=== PATIENT | female | born 1965 | race Caucasian/White ===

== ENCOUNTER 2019-08-18 08:38 | Outpatient (CLI) | payer OTHER, SELFPAY ==
[2019-08-18 09:05] LABS: Basophils Absolute Auto 0.04 K/mm3 (0.00-0.10); Basophils Percent Auto 0.8 % (0.0-1.0); Eosinophils Absolute Auto 0.12 K/mm3 (0.02-0.50); Eosinophils Percent Auto 2.3 % (1.0-6.0); Hematocrit 36.3 % (35.0-49.0); Hemoglobin 11.9 g/dL (12.0-15.0); Immature Granulocyte Absolute 0.02 K/mm3 (0.00-0.00); Immature Granulocyte Percent A 0.4 % (0.0-0.0); Lymphocytes Absolute Auto 2.21 K/mm3 (1.10-4.50); Lymphocytes Percent Auto 42.3 % (18.0-42.0); Mean Corpuscular HGB Conc 32.8 g/dL (32.0-36.0); Mean Corpuscular Hemoglobin 29.1 pg (27.0-31.0); Mean Corpuscular Volume 88.8 fL (78.0-102.0); Mean Platelet Volume 11.6 fl (9.2-11.8); Monocytes Absolute Auto 0.43 K/mm3 (0.10-0.90); Monocytes Percent Auto 8.2 % (2.0-11.0); Neutrophils Absolute Auto 2.4 K/mm3 (1.7-7.2); Platelet Count Result 196 K/mm3 (150-420); Red Blood Count 4.09 M/mm3 (4.20-5.40); Red Cell Distribution Width 12.7 % (11.6-14.4); White Blood Count 5.2 K/mm3 (4.8-10.8)
[2019-08-18 09:14] LABS: Add Urine Microscopic? NO; Appearance Urine Clear (Clear); Bilirubin Urine Negative (Negative); Blood Urine Negative (Negative); Color Urine Yellow (Yellow); Glucose Urine UA Negative (Negative); Ketones Urine Negative (Negative); Leukocyte Esterase Ur Negative (Negative); Nitrate Urine Negative (Negative); Protein Urine Negative (Negative); Specific Grav Ur 1.015 (1.010-1.020); Urobilinogen Urine 0.2 mg/dL (0.2-1.0)
[2019-08-18 09:46] LABS: Alanine Aminotransferase 26 U/L (14-59); Albumin Level 3.8 g/dL (3.4-5.0); Alkaline Phosphatase 49 U/L (46-116); Anion Gap 8.9 mmol/L (7-16); Aspartate Amino Transferase 19 U/L (15-37); Bilirubin,Total 0.4 mg/dL (0.00-1.00); Blood Urea Nitrogen 10 mg/dL (7-18); Calcium 8.7 mg/dL (8.5-10.1); Carbon Dioxide 31 mmol/L (21-32); Chloride 102 mmol/L (98-108); Cholesterol 165 mg/dL (0-200); Estimated Glomerular Filt Rate > 60; Glucose 98 mg/dL (70-99); HDL Direct 38 mg/dL (40-60); LDL Cholesterol Calculated 93 mg/dL (<130); Osmolality Calculated 285 mOsm/kg (285-295); Potassium 3.9 mmol/L (3.5-5.1); Sodium 138 mmol/L (136-145); Thyroid Stimulating Hormone 1.82 uIU/mL (0.36-3.74); Total Protein 7.6 g/dL (6.4-8.2); Triglycerides 169 mg/dL (0-150)
[2019-08-22 20:14] LABS: Vitamin D 25 Hydroxy 37 ng/mL (30-100)
== END 2019-08-18 08:39 | disposition home or self-care (01) ==
LOC: CHSLAB 08:49
PROVIDERS: PCP Internal Medicine Geriatric Medicine; Visit Provider Internal Medicine Geriatric Medicine
DX: Z00.00 Encounter for general adult medical examination without abnormal findings (principal); E78.5 Hyperlipidemia, unspecified; E55.9 Vitamin D deficiency, unspecified
CPT/HCPCS: 36415; 80053; 80061; 81003; 82306; 84443; 85025

== ENCOUNTER 2020-11-15 08:07 | Outpatient (CLI) | payer OTHER, SELFPAY ==
[2020-11-15 08:24] LABS: Add Urine Microscopic? NO; Appearance Urine Clear (Clear); Basophils Absolute Auto 0.06 K/mm3 (0.00-0.10); Bilirubin Urine Negative (Negative); Blood Urine Negative (Negative); Color Urine Yellow (Yellow); Eosinophils Absolute Auto 0.18 K/mm3 (0.02-0.50); Eosinophils Percent Auto 3.1 % (1.0-6.0); Glucose Urine UA Negative (Negative); Hematocrit 35.5 % (35.0-49.0); Hemoglobin 11.6 g/dL (12.0-15.0); Immature Granulocyte Absolute 0.01 K/mm3 (0.00-0.00); Immature Granulocyte Percent A 0.2 % (0.0-0.0); Ketones Urine Negative (Negative); Leukocyte Esterase Ur Negative (Negative); Lymphocytes Percent Auto 39.7 % (18.0-42.0); Mean Corpuscular HGB Conc 32.7 g/dL (32.0-36.0); Mean Corpuscular Hemoglobin 27.8 pg (27.0-31.0); Mean Corpuscular Volume 84.9 fL (78.0-102.0); Mean Platelet Volume 11.6 fl (9.2-11.8); Monocytes Absolute Auto 0.44 K/mm3 (0.10-0.90); Monocytes Percent Auto 7.6 % (2.0-11.0); Neutrophils Absolute Auto 2.8 K/mm3 (1.7-7.2); Neutrophils Percent Auto 48.4 % (50.0-70.0); Nitrate Urine Negative (Negative); Platelet Count Result 218 K/mm3 (150-420); Protein Urine Negative (Negative); Red Blood Count 4.18 M/mm3 (4.20-5.40); Red Cell Distribution Width 13.6 % (11.6-14.4); Urobilinogen Urine 0.2 mg/dL (0.2-1.0); White Blood Count 5.8 K/mm3 (4.8-10.8)
[2020-11-15 08:37] LABS: Hemoglobin A1C 5.7 % (<5.7)
[2020-11-15 09:37] LABS: Anion Gap 10 mmol/L (8-16); Blood Urea Nitrogen 9 mg/dL (7-18); Calcium 8.7 mg/dL (8.5-10.1); Carbon Dioxide 29 mmol/L (21-32); Chloride 100 mmol/L (98-108); Cholesterol 127 mg/dL (0-200); Estimated Glomerular Filt Rate > 60; Glucose 103 mg/dL (70-99); HDL Direct 38 mg/dL (40-60); LDL Cholesterol Calculated 65 mg/dL (<130); Osmolality Calculated 286 mOsm/kg (285-295); Potassium 3.6 mmol/L (3.5-5.1); Sodium 139 mmol/L (136-145); Thyroid Stimulating Hormone 2.38 uIU/mL (0.36-3.74); Triglycerides 120 mg/dL (0-150)
[2020-11-19 18:45] LABS: Vitamin D 25 Hydroxy 56 ng/mL (30-100)
== END 2020-11-15 08:08 | disposition home or self-care (01) ==
LOC: CHSLAB 08:10
PROVIDERS: PCP Internal Medicine Geriatric Medicine; Visit Provider Internal Medicine Geriatric Medicine
DX: Z00.00 Encounter for general adult medical examination without abnormal findings (principal); E78.5 Hyperlipidemia, unspecified; R73.09 Other abnormal glucose; E55.9 Vitamin D deficiency, unspecified
CPT/HCPCS: 36415; 80048; 80061; 81003; 82306; 83036; 84443; 85025

== ENCOUNTER 2021-12-01 08:18 | Outpatient (CLI) | payer OTHER, SELFPAY ==
--- NOTE | ~2021-12-01 | XR_ITS ---
EXAMINATION: XR knee LT min 4V DATE: 12/01/2021 08:38 INDICATION: Left knee pain TECHNIQUE: Four views of the left knee were obtained. COMPARISON: None. FINDINGS: Alignment is normal. No fracture or osteochondral lesion. There is mild tricompartmental os teoarthritis characterized by tiny marginal osteophytes and mild narrowing of the medial compartment. No joint effusion/synovitis. Soft tissues are unremarkable. IMPRESSION: 1. Mild osteoarthritis. Reviewed, dictated and finalized at location A. IMPRESSION: 1. Mild osteoarthritis.
== END 2021-12-01 08:19 | disposition home or self-care (01) ==
LOC: CHSIMG 08:18
PROVIDERS: PCP Internal Medicine Geriatric Medicine; Visit Provider Orthopaedic Surgery
DX: M25.562 Pain in left knee (principal)
CPT/HCPCS: 73564

== ENCOUNTER 2021-12-12 09:05 | Outpatient (CLI) | payer OTHER, SELFPAY ==
--- NOTE | ~2021-12-12 | MR_ITS ---
EXAMINATION: MR knee LT wo con DATE: 12/12/2021 09:56 INDICATION: Evaluate for left knee injury. TECHNIQUE: Magnetic resonance imaging (MRI) of the left knee was performed without intravenous contra st. Sequences included axial PD-weighted FS FSE, coronal PD-weighted FSE and PD-weighted FS FSE, sagi ttal PD-weighted FSE, and sagittal T2-weighted FS FSE. COMPARISON: X-ray left knee 12/01/2021 FINDINGS: Medial compartment: Small apical tear of the medial meniscal body. Mild medial extrusion of the meniscus. 4 mm area of fu ll-thickness cartilage loss on the medial condyle. Mild diffuse cartilage thinning. Mild osteophytosi s. Lateral compartment: No meniscal tear. Mild lateral extrusion of the meniscus. Mild osteophytosis. Patellofemoral compartment: Moderate diffuse thinning of cartilage on the lateral facet. Multifocal areas of partial-thickness ca rtilage signal abnormality. Mild osteophytosis. Retinacula are intact. Ligaments and tendons: Abnormal signal deep to the fibers of the ACL at the origin. The PCL is intact. Minimal abnormal sign al superficial to the fibers of the otherwise intact appearing MCL. The LCL is intact. Partial-thickn ess abnormal signal in the distal pes anserine tendons, with minimal adjacent fluid. Remaining flexor extensor tendons are intact. Fluid: Moderate volume joint fluid. Osseous/other: Marrow edema and subchondral cyst formation at the medial and lateral aspect of the medial femoral co ndyle. Bone marrow signal is otherwise unremarkable. IMPRESSION: 1. Small apical tear of the medial meniscal body. 2. Mild partial tear of the origin of the ACL. 3. Mild strain and bursitis of the pes anserine tendons. 4. 4 mm full-thickness cartilage defect on the medial femoral condyle. 5. Moderate left knee joint effusion. 6. Mild tricompartmental osteoarthritis. Reviewed, dictated and finalized at location K.
== END 2021-12-12 09:06 | disposition home or self-care (01) ==
LOC: CHSIMG 09:07
PROVIDERS: PCP Internal Medicine Geriatric Medicine; Visit Provider Orthopaedic Surgery
DX: S89.92XA Unspecified injury of left lower leg, initial encounter (principal)
CPT/HCPCS: 73721

== ENCOUNTER 2022-02-06 09:02 | Outpatient (CLI) | payer OTHER, SELFPAY ==
[2022-02-06 09:22] LABS: Basophils Absolute Auto 0.06 K/mm3 (0.00-0.10); Basophils Percent Auto 0.9 % (0.0-1.0); Eosinophils Absolute Auto 0.23 K/mm3 (0.02-0.50); Eosinophils Percent Auto 3.5 % (1.0-6.0); Hematocrit 39.4 % (35.0-49.0); Hemoglobin 12.8 g/dL (12.0-15.0); Immature Granulocyte Absolute 0.02 K/mm3 (0.00-0.00); Immature Granulocyte Percent A 0.3 % (0.0-0.0); Lymphocytes Absolute Auto 2.41 K/mm3 (1.10-4.50); Lymphocytes Percent Auto 36.3 % (18.0-42.0); Mean Corpuscular HGB Conc 32.5 g/dL (32.0-36.0); Mean Corpuscular Volume 89.3 fL (78.0-102.0); Mean Platelet Volume 11.4 fl (9.2-11.8); Monocytes Absolute Auto 0.48 K/mm3 (0.10-0.90); Monocytes Percent Auto 7.2 % (2.0-11.0); Neutrophils Absolute Auto 3.4 K/mm3 (1.7-7.2); Neutrophils Percent Auto 51.8 % (50.0-70.0); Platelet Count Result 225 K/mm3 (150-420); Red Blood Count 4.41 M/mm3 (4.20-5.40); Red Cell Distribution Width 13.4 % (11.6-14.4); White Blood Count 6.6 K/mm3 (4.8-10.8)
[2022-02-06 09:46] LABS: Alanine Aminotransferase 55 U/L (14-59); Albumin Level 3.7 g/dL (3.4-5.0); Alkaline Phosphatase 70 U/L (46-116); Anion Gap 5 mmol/L (8-16); Aspartate Amino Transferase 44 U/L (15-37); Bilirubin,Total 0.7 mg/dL (0.00-1.00); Blood Urea Nitrogen 12 mg/dL (7-18); Calcium 8.7 mg/dL (8.5-10.1); Carbon Dioxide 29 mmol/L (21-32); Chloride 100 mmol/L (98-108); Cholesterol 146 mg/dL (0-200); Estimated Glomerular Filt Rate > 60; Glucose 90 mg/dL (70-99); HDL Direct 48 mg/dL (40-60); LDL Cholesterol Calculated 71 mg/dL (<130); Osmolality Calculated 277 mOsm/kg (285-295); Potassium 3.4 mmol/L (3.5-5.1); Sodium 134 mmol/L (136-145); Thyroid Stimulating Hormone 1.47 uIU/mL (0.36-3.74); Total Protein 7.7 g/dL (6.4-8.2); Triglycerides 134 mg/dL (0-150)
[2022-02-10 12:08] LABS: Vitamin D 25 Hydroxy 43 ng/mL (30-100)
== END 2022-02-06 09:03 | disposition home or self-care (01) ==
LOC: CHSLAB 09:05
PROVIDERS: PCP Internal Medicine Geriatric Medicine; Visit Provider Internal Medicine Geriatric Medicine
DX: Z00.00 Encounter for general adult medical examination without abnormal findings (principal); E78.5 Hyperlipidemia, unspecified; E55.9 Vitamin D deficiency, unspecified; R73.09 Other abnormal glucose
CPT/HCPCS: 36415; 80053; 80061; 82306; 83036; 84443; 85025

== ENCOUNTER 2022-03-27 10:47 | Outpatient (CLI) | payer OTHER, SELFPAY ==
[2022-03-27 11:29] LABS: Alanine Aminotransferase 24 U/L (14-59); Albumin Level 3.9 g/dL (3.4-5.0); Alkaline Phosphatase 80 U/L (46-116); Aspartate Amino Transferase 30 U/L (15-37); Bilirubin Direct 0.1 mg/dL (0-0.2); Bilirubin,Total 0.5 mg/dL (0.00-1.00); Total Protein 7.7 g/dL (6.4-8.2)
== END 2022-03-27 10:48 | disposition home or self-care (01) ==
LOC: CHSLAB 10:49
PROVIDERS: PCP Internal Medicine Geriatric Medicine; Visit Provider Internal Medicine Geriatric Medicine
DX: Z51.81 Encounter for therapeutic drug level monitoring (principal)
CPT/HCPCS: 36415; 80076

== ENCOUNTER 2023-02-11 07:51 | Outpatient (CLI) | payer OTHER, SELFPAY ==
[2023-02-11 08:05] LABS: Hematocrit 40.1 % (35.0-49.0); Hemoglobin 13.3 g/dL (12.0-15.0); Mean Corpuscular HGB Conc 33.2 g/dL (32.0-36.0); Mean Corpuscular Hemoglobin 29.6 pg (27.0-31.0); Mean Corpuscular Volume 89.3 fL (78.0-102.0); Mean Platelet Volume 11.5 fl (9.2-11.8); Platelet Count Result 212 K/mm3 (150-420); Red Blood Count 4.49 M/mm3 (4.20-5.40); Red Cell Distribution Width 12.7 % (11.6-14.4); White Blood Count 5.4 K/mm3 (4.8-10.8)
[2023-02-11 08:06] LABS: Appearance Urine Clear (Clear); Bilirubin Urine Negative (Negative); Blood Urine Negative (Negative); Color Urine Light Yellow (Yellow); Glucose Urine UA Negative (Negative); Ketones Urine Negative (Negative); Leukocyte Esterase Ur Negative (Negative); Nitrate Urine Negative (Negative); Protein Urine Negative (Negative); Urobilinogen Urine 0.2 mg/dL (0.2-1.0)
[2023-02-11 08:26] LABS: Add Urine Microscopic? NO; Hemoglobin A1C 5.9 % (<5.7)
[2023-02-11 08:48] LABS: Alanine Aminotransferase 45 U/L (14-59); Albumin Level 3.6 g/dL (3.4-5.0); Alkaline Phosphatase 75 U/L (46-116); Anion Gap 7 mmol/L (8-16); Aspartate Amino Transferase 36 U/L (15-37); Bilirubin,Total 0.8 mg/dL (0.00-1.00); Blood Urea Nitrogen 8 mg/dL (7-18); Calcium 8.9 mg/dL (8.5-10.1); Carbon Dioxide 31 mmol/L (21-32); Chloride 102 mmol/L (98-108); Cholesterol 138 mg/dL (0-200); Estimated Glomerular Filt Rate > 60; Glucose 105 mg/dL (70-99); HDL Direct 37 mg/dL (40-60); LDL Cholesterol Calculated 54 mg/dL (<130); Osmolality Calculated 288 mOsm/kg (285-295); Potassium 3.9 mmol/L (3.5-5.1); Sodium 140 mmol/L (136-145); Thyroid Stimulating Hormone 2.07 uIU/mL (0.36-3.74); Total Protein 7.3 g/dL (6.4-8.2); Triglycerides 234 mg/dL (0-150)
[2023-02-16 20:13] LABS: Vitamin D 25 Hydroxy 66 ng/mL (30-100)
== END 2023-02-11 07:52 | disposition home or self-care (01) ==
LOC: CHSLAB 07:53
PROVIDERS: PCP Internal Medicine Geriatric Medicine; Visit Provider Internal Medicine Geriatric Medicine
DX: Z00.00 Encounter for general adult medical examination without abnormal findings (principal); E78.5 Hyperlipidemia, unspecified; R73.09 Other abnormal glucose; E55.9 Vitamin D deficiency, unspecified
CPT/HCPCS: 36415; 80053; 80061; 81003; 82306; 83036; 84443; 85027

== ENCOUNTER 2024-01-21 08:42 | Outpatient (CLI) | payer OTHER, SELFPAY ==
[2024-01-21 11:14] LABS: Basophils Absolute Auto 0.05 K/mm3 (0.00-0.10); Basophils Percent Auto 0.7 % (0.0-1.0); Eosinophils Absolute Auto 0.11 K/mm3 (0.02-0.50); Eosinophils Percent Auto 1.6 % (1.0-6.0); Hemoglobin 12.5 g/dL (12.0-15.0); Immature Granulocyte Absolute 0.03 K/mm3 (0.00-0.00); Immature Granulocyte Percent A 0.4 % (0.0-0.0); Lymphocytes Absolute Auto 2.23 K/mm3 (1.10-4.50); Lymphocytes Percent Auto 32.8 % (18.0-42.0); Mean Corpuscular HGB Conc 32.9 g/dL (32-36); Mean Corpuscular Hemoglobin 28.9 pg (27.0-31.0); Mean Platelet Volume 12.2 fl (9.2-11.8); Monocytes Absolute Auto 0.42 K/mm3 (0.10-0.90); Monocytes Percent Auto 6.2 % (2.0-11.0); Neutrophils Absolute Auto 3.95 K/mm3 (1.70-7.20); Neutrophils Percent Auto 58.3 % (50.0-70.0); Platelet Count Result 231 K/mm3 (150-420); Red Blood Count 4.32 M/mm3 (4.20-5.40); Red Cell Distribution Width 12.7 % (11.6-14.4); White Blood Count 6.8 K/mm3 (4.8-10.8)
[2024-01-21 13:27] LABS: Alanine Aminotransferase 35 U/L (14-59); Albumin Level 3.7 g/dL (3.4-5.0); Alkaline Phosphatase 79 U/L (46-116); Anion Gap 10 mmol/L (4-12); Aspartate Amino Transferase 26 U/L (15-37); Bilirubin,Total 0.9 mg/dL (0.00-1.00); Blood Urea Nitrogen 9 mg/dL (7-18); Calcium 8.8 mg/dL (8.5-10.1); Carbon Dioxide 28 mmol/L (21-32); Chloride 103 mmol/L (98-108); Cholesterol 132 mg/dL (0-200); Estimated Glomerular Filt Rate > 60; Glucose 96 mg/dL (70-99); HDL Direct 39 mg/dL (40-60); LDL Cholesterol Calculated 52 mg/dL (<130); Osmolality Calculated 290 mOsm/kg (285-295); Potassium 3.7 mmol/L (3.5-5.1); Sodium 141 mmol/L (136-145); Thyroid Stimulating Hormone 1.56 uIU/mL (0.36-3.74); Total Protein 7.8 g/dL (6.4-8.2); Triglycerides 206 mg/dL (0-150)
[2024-01-21 14:36] LABS: Hemoglobin A1C 5.8 % (<5.7)
[2024-01-25 12:19] LABS: Hepatitis C Virus Antibody NON-REACTIVE (NON-REACTIVE)
== END 2024-01-21 08:43 | disposition home or self-care (01) ==
PROVIDERS: PCP Nurse Practitioner; Visit Provider Nurse Practitioner
DX: Z11.59 Encounter for screening for other viral diseases (principal); Z13.29 Encounter for screening for other suspected endocrine disorder; Z13.1 Encounter for screening for diabetes mellitus; E78.5 Hyperlipidemia, unspecified
CPT/HCPCS: 36415; 80053; 80061; 83036; 84443; 85025; 86803

== ENCOUNTER 2024-02-22 15:53 | Outpatient (RCR) | payer OTHER, SELFPAY ==
--- NOTE | 2024-02-22 16:41 | OPREHPOC ---
Outpatient Therapy Plan of Care This is a Multidisciplinary Plan of Care that may contain components documented by all disciplines (PT, OT, and ST.) PT Problem 1 PT Problem #1 Knowledge Deficit PT Goal 1 Goal / Goal Update 1. independent and compliant with HEP Target Visit 4 PT Problem 2 PT Problem #2 Impaired Strength PT Goal 1 Goal / Goal Update 1. 5/5 bilateral hip abd PT Problem 3 PT Problem #3 Impaired Balance PT Goal 1 Goal / Goal Update 1. tinetti to display 24/28 or less functional deficits 2. TUG to be performed in 10 seconds or less safely 3. 5x sit to stand to be performed in 10 seconds or less Target Visit 8 PT Problem 4 PT Problem #4 Impaired Functional Mobil PT Goal 1 Goal / Goal Update 1. patient to report not falling in the last 4 weeks Target Visit 8
--- NOTE | 2024-02-22 16:41 | PTOPEVAL1 ---
Assessment and note entered by JT File, PT Evaluation Information Assessment Status Evaluation ICD-10 Condition Codes (PT) Repeated falls R29.6,R26.9 Other ICD-10 Condition Codes ( R26.89; G80.9; R29.6 PT) Onset 02/12/24 Subjective Information she reports she had her first fall around 02/12/24 . she reports she then fell again on that and the following tuesday. she reports when she feels it is due to a loss of balance and not being able to catch or correct herself. she reports she has slowed down her walking and movement a lot since her falls. she reports she is complicated by having CP and having limited mobility in the R ankle/foot. she reports she has had issues with her balance in the past. Reported Pain Level Pain Score 2: Self Report Additional Pain Score Comments patellae, legs Assessment PT Clinical Summary mrs. byrne is a 58 yo woman who presents to skilled PT services for evaluation and treatment of gait instability and frequent falls. patient displays decreased ambulation safety, high fall risk, weakness, and history of CP and frequent falls. she would benefit from continued skilled PT services to improve her objective/functional deficits and progress towards a return to her prior level functional activity performance, safety, and quality of life. Plan of Care Interventions Gait Training,Neuro Re-education,Patient/Caregiver Educati,Therapeutic Activities,Therapeutic Exercise PT Services Indicated Yes Treatment Frequency and 2x weekly for 8 visits Duration These treatments will address the objective and functional deficits as defined above. The patient will be advanced safely and appropriately in order for the patient to progress towards his/her prior level of function. Additional exercises will be introduced and as well as a comprehensive home exercise program upon discharge, if needed, ?to ensure carryover of functional gains achieved in the clinic. This treatment plan has been reviewed and agreement upon by the patient.
--- NOTE | 2024-03-14 07:41 | OPREHPOC ---
Outpatient Therapy Plan of Care This is a Multidisciplinary Plan of Care that may contain components documented by all disciplines (PT, OT, and ST.) PT Problem 1 PT Problem #1 Knowledge Deficit PT Goal 1 Goal / Goal Update 1. independent and compliant with HEP Target Visit 4 Progress Met PT Problem 2 PT Problem #2 Impaired Strength PT Goal 1 Goal / Goal Update 1. 5/5 bilateral hip abd Progress Not Met PT Problem 3 PT Problem #3 Impaired Balance PT Goal 1 Goal / Goal Update 1. tinetti to display 24/28 or better balance score. met 2. TUG to be performed in 10 seconds or less safely. met 3. 5x sit to stand to be performed in 10 seconds or less. not met Target Visit 8 Progress Met PT Problem 4 PT Problem #4 Impaired Functional Mobil PT Goal 1 Goal / Goal Update 1. patient to report not falling in the last 4 weeks. met Target Visit 8 Progress Met
--- NOTE | 2024-03-14 07:41 | PTOPDC ---
Assessment and note entered by JT File, PT Evaluation Information Assessment Status Discharge ICD-10 Condition Codes (PT) Repeated falls R29.6,R26.9 Other ICD-10 Condition Codes ( R26.89; G80.9; R29.6 PT) Onset 02/12/24 Subjective Information patient reports she feels Good today. she reports she has had no falls. she reports she is ready to make today her last therapy session. she reports being much stronger than she was prior to starting therapy. Reported Pain Level Pain Score 0: Self Report Assessment PT Clinical Summary mrs. byrne presents to skilled PT for her 8th skilled PT visit. she reports having had no falls since being in skilled PT. she displays improve balance, ambulation, and safety with transfers. she has met 66% of goals for skilled PT. she will DC skilled PT today, and continue with HEP independent at home. Plan of Care PT Services Indicated Yes
== END 2024-03-14 08:27 | disposition home or self-care (01) ==
LOC: CHSPT 15:53
DX: R26.89 Other abnormalities of gait and mobility (principal); G80.9 Cerebral palsy, unspecified; R29.6 Repeated falls
CPT/HCPCS: 97110; 97112; 97161

== ENCOUNTER 2024-07-30 07:55 | Outpatient (CLI) | payer OTHER, SELFPAY ==
--- NOTE | ~2024-07-30 | DEXA_ITS ---
Bone Density Report Name: DENISE VEGA Age: 59 Sex: Female Ethnicity: White Date of : 1965 Indication: postmenopausal; screening for osteoporosis; Referring Provider: Magdalena, Noa Weber Study: Bone densitometry was performed. Exam Date: July 30, 2024 Accession number: [id number] Bone Density: Region BMD T-score Z-score Classification AP Spine(L1-L4) 1.110 0.6 2.0 Normal Femoral Neck (Left) 0.776 -0.7 0.6 Normal Total Hip (Left) 1.039 0.8 1.7 Normal Femoral Neck (Right) 0.806 -0.4 0.9 Normal Total Hip (Right) 0.979 0.3 1.2 Normal Femoral Neck Mean 0.791 -0.5 0.8 Normal Total Hip Mean 1.009 0.5 1.5 Normal World Health Organization criteria for BMD impression classify patients as: Normal (T-score at or above -1.0), Osteopenia (T-score between -1.0 and -2.5), or Osteoporosis (T-score at or below -2.5). 10-year Fracture Risk: FRAX not reported because: All T-scores for Spine Total, Hip Total, Femoral Neck at or above -1.0 Clinical Information Provided by Patient: Patient maximum height was 66 Menopause Age: 49 No regular weight bearing exercise Onset of menses at age 12 Number of children 1 Impression: The patient has normal bone mass. Discussion: BONE DENSITY IS ABOVE THE MINIMUM DESIRABLE LEVEL AT ALL SKELETAL SITES TESTED. This patient?s bone mineral density is above the minimum desirable level (T-score -1.0 or better) at all sites measured. The patient should follow a healthful lifestyle (good nutrition with adequate calcium and vitamin D, and appropriate weight-bearing exercise). Follow-Up: Consider repeating this study in 5 years or sooner if there is some new clinical indication. Reported by: CARLOS on 07/30/2024 8:27:00 AM. Reviewed, dictated and finalized at location A.
--- NOTE | ~2024-07-30 | MM_ITS ---
EXAMINATION: MM screening teressa BI w mane HISTORY: Screening TECHNIQUE: Craniocaudal and mediolateral oblique 3-D tomosynthesis images were obtained and synthetic 2-D images were generated. CAD analysis was submitted and interpreted. COMPARISON: No prior mammogram is available for comparison at this institution. BREAST PARENCHYMAL COMPOSITION: Dense: The breasts are heterogeneously dense, which may obscure small masses FINDINGS: There is no evidence of suspicious mass, calcification, or architectural distortion to sugg est malignancy in either breast. There has been no suspicious interval change. IMPRESSION: 1. No mammographic evidence of malignancy. 2. Recommend routine screening mammography in one year. BI-RADS Category 1: Negative Reviewed, dictated and finalized at location [] WN SALES AND LENDING TEAM MEMBER
--- OUTSIDE RECORDS SUMMARY | 2024-07-30 11:05 | XMS_ITS ---
Author Organization Unknown Address [address] [place] [address] [phone] Phone Care Team Providers Care Boat Outboard Engine Mechanic Name Role Phone PREET GASTON Attending Unavailable HANNY Oliveros Primary Unavailable Results DIG 3D YOUSIF SCREENING BILATER AL - Completed: 07/28/2023 15:37 LOINC: See Scanned Image Attachment for Report Dictated By: Trans Initials: BG Trans Date: 08/24/23 13:01 <<REPDIST>> Social History Type Status Start Date End Date Code Code Syst em Smoking History Never smoker (Never Smoked) 708833354 SNOMED CT Sex Female Hospital Discharge Instructions Should you have any questions prior to discharge, please contact a member of your healthcare team. If you have left the hospital and have any questions, please contact your primary care physician. Reason For Referral No Data Found Plan of Treatment No Data Found Encounters Encounter Diagnosis Start Date Code Code Sys tem Screening mammography 07/28/2023 [id number] SNOMED -CT Personal Care Team Section Performer Name Performer Role Active Date Inactive JENY Leung PCP - Primary care physician Imaging Narrative Notes [facility] 08/24/2023 13:[address] [address] RADIOLOGY REPORT Patient Number: [id number] Patient Name: GARY Hall Type: O/P MR Number: [id number] : 1965 Age: 58 Sex: F Room #: Admit Date: 07/28/23 Discharge Date 07/28/23 Ordering Physician: PREET GASTON Family Physician: HANNY JEFF Second Physician: X-Ray Number : [id number] DIG 3D YOUSIF SCREENING BILATERA [id number] COMPLETE:07/28/23 15:37 [id number] (REASONS-DIG 3D YOUSIF SCREENING BILATERAL: SCREENING MAMMOGRAM See Scanned Image Attachment for Report Dictated By: Yessica Initials: Trans Date: 08/24/23 13:01 <<REPDIST>>
--- OUTSIDE RECORDS SUMMARY | 2024-07-30 11:05 | XMS_ITS | Referral Summary ---
Author Organization [facility] Address [address] [place] [address] Care Team Providers Care Medical Services Assistant Name Role Phone Baldomero Persaud MD Primary Care Provider + Allergies No known active allergies Medications atorvastatin (LIPITOR) 40 mg tablet Take 40 mg by mouth daily. Active clonazePAM (KlonoPIN) 0.5 mg tablet Take 0.5 mg by mouth 2 (two) times a day. Active estradiol (ESTRACE) 1 mg tablet Take 1 mg by mouth daily. Active PARoxetine (PAXIL) 40 mg tablet Take 40 mg by mouth every morning. Active ergocalciferol (VITAMIN D) 50,000 unit capsule Take 50,000 Units by mouth once a week. Active raNITIdine (ZANTAC) 150 mg tablet Take 150 mg by mouth 2 (two) times a day. Active Active Problems No known active problems Social History Tobacco Use Types Packs/Day Years Used Date Smoking Tobacco: Never Smokeless Tobacco: Never Alcohol Use Standard Drinks/Week Comments Yes 0 (1 standard drink = 0.6 oz pur e alcohol) socially Comments No Sex and Gender Information Value Date Recorded Sex Assigned at Not on file Legal Sex Female 11:26 PM COMMUNICATIONS MARKETING INTERN Gender Identity Not on file Sexual Orientation Not on file Last Filed Vital Signs Vital Sign Reading Time Taken Comments Blood Pressure 120/82 01/18/2018 3:13 PM CDT Pulse 92 01/18/2018 3:13 PM CDT Temperature - - Respiratory Rate 16 01/18/2018 3:13 PM CDT Oxygen Saturation - - Inhaled Oxygen Concentration - - Weight 81.6 kg (180 lb) 06/24/2021 4:37 PM COMMUNICATIONS MARKETING INTERN Height 167.6 cm (5' 6 ) 06/24/2021 4:37 PM COMMUNICATIONS MARKETING INTERN Body Mass Index 29.05 06/24/2021 4:37 PM COMMUNICATIONS MARKETING INTERN Plan of Treatment Not on file Procedures Procedure Name Priority Date/Time Associated Diagnosis Comments SCREENING MAMMOGRAM BILATERAL W GALILEO Schedule Routine, Read Routine (OP Routine) 07/17/2022 11:13 AM COMMUNICATIONS MARKETING INTERN Screening mammogram, encounter for COLONOSCOPY 03/18/2015 12:00 AM CDT from Last 3 Months or Most Recently Relevant to Health Maintenance Results * Screening Mammogram Bilateral W Galileo (07/17/2022 11:13 AM COMMUNICATIONS MARKETING INTERN) Anatomical Region Laterality Modality Breast Bilateral Mammography 07/19/2022 9:00 AM COMMUNICATIONS MARKETING INTERN Impressions 07/19/2022 9:00 AM COMMUNICATIONS MARKETING INTERN There is no mammographic evidence of malignancy. A 1 year screening mammogram is recommended. BI-RADS: 1 - Negative. The patient has been or will be contacted. The patient will be entered into a reminder system with a target due date of 1 year for her next mammogram. Electronically signed by: Edmond Blanco M.D. Narrative 07/19/2022 9:00 AM COMMUNICATIONS MARKETING INTERN EXAMINATION: SCREENING MAMMOGRAM BILATERAL W GALILEO ORDERING HEALTHCARE PROVIDER: SELF SCREENING MAMMOGRAM HISTORY: Routine screening mammography. COMPARISON: 06/24/2021, 08/19/2018, 08/17/2017 TECHNIQUE: CC and MLO views of the bilateral breasts were obtained with digital technique using breast tomosynthesis with C view. Computer aided detection was utilized. FINDINGS: DENSITY: The tissue of the bilateral breasts is heterogeneously dense, which may obscure small masses. BREASTS: There are no suspicious masses, suspicious calcifications, or other suspicious findings in either breast. There has been no suspicious interval change. us Self Screening Mammogram IMG MAMMO PROCEDURES Fi nal Result * COLONOSCOPY (03/18/2015 12:00 AM CDT) Anatomical Region Laterality Modality Other Narrative 03/18/2015 12:00 AM CDT Ordered by an unspecified provider. Procedure Note Provider, MD Puma - 03/18/2015 12:00 AM CDT PROCEDURE REPORT Patient: NICHOLE VEGA Account: [id number] Room No: : 1965 Patient Type: SDS Attend.: Earle Siddiqui M.D. Admit Date: 03/18/2015 Dict.: Earle Siddiqui M.D. Disch. Date: 03/18/2015 NAME OF PROCEDURE: Colonoscopy. HISTORY: This is a 49-year-old female who presents for screeningcolonoscopy. PHYSICAL EXAMINATION: GENERAL: Well-developed female. LUNGS: Clear. CARDIOVASCULAR: Unremarkable. PROCEDURE: Colonoscopy was performed with an Olympus video endoscope.The patient was premedicated by anesthesia. On digital exam, she has got gradeII to III hemorrhoids. We inserted the endoscope and advanced it to thececum. The colon was excellently prepped and visualized. We could find no evidenceof inflammation or neoplasia anywhere through the length of the bowel. Thepatient tolerated the procedure without difficulty. POSTOPERATIVE DIAGNOSIS: Hemorrhoidal disease, otherwise normal. PLAN: Surveillance in 10 years. Electronically Authenticated and Edited by: Earle Siddiqui MD On 03/20/2015 07:46 AM CDT Earle Siddiqui M.D. DR/tammie TD: 03/19/2015 07:07 CC: Baldomero Serrano M.D. Historical Provider ENDOSCOPY PROCEDURES Marija l Result from Last 3 Months or Most Recently Relevant to Health Maintenance Insurance [facility] OPEN ACCESS [facility] [id number] Care Teams Medical Services Assistant Relationship Specialty [place] [id number] [facility] [address] [place] [address] PCP - General 08/09/16
--- OUTSIDE RECORDS SUMMARY | 2024-07-30 11:05 | XMS_ITS | Clinical Summary ---
Author Organization [facility] Address [address] [place] [address] Care Team Providers Care Physician Office Secretary Name Role Phone Baldomero Persaud MD Primary [...] Active Active Problems No known active problems Surgical History Surgery Date Site/Laterality Comments HYSTERECTOMY OOPHORECTOMY Medical History Medical History Date Comments Cerebral palsy (HCC) Family History Medical History Relation Name Comments Breast cancer Sister eugenia reaccurance at age 40 Relation Name Status Comments Sister eugenia Alive Social History Tobacco Use Types Packs/Day Years Used Date Smoking Tobacco: Never Smokeless Tobacco: Never Alcohol Use Standard Drinks/Week Comments Yes 0 (1 standard drink = 0.6 oz pur e alcohol) socially Comments No Sex and Gender Information Value Date Recorded Sex Assigned at Not on file Legal Sex Female 11:26 PM COMPUTER FORENSICS INVESTIGATOR Gender Identity Not on file Sexual Orientation Not on file Obstetrics History Para Term AB IAB SAB Ectopic Multiple Livin g Live Births 2 1 1 Date Outcome GA Total Labor Labor/2nd/3rd Weight Sex Type Anes PTL Abril A1 A5 Name Clin Term Last Filed Vital Signs Vital Sign Reading Time Taken Comments Blood Pressure 120/82 01/18/2018 3:13 PM CDT Pulse 92 01/18/2018 3:13 PM CDT Temperature - - Respiratory Rate 16 01/18/2018 3:13 PM CDT Oxygen Saturation - - Inhaled Oxygen Concentration - - Weight 81.6 kg (180 lb) 06/24/2021 4:37 PM COMPUTER FORENSICS INVESTIGATOR Height 167.6 cm (5' 6 ) 06/24/2021 4:37 PM COMPUTER FORENSICS INVESTIGATOR Body Mass Index 29.05 06/24/2021 4:37 PM COMPUTER FORENSICS INVESTIGATOR Plan of Treatment Health Maintenance Due Date Last Done Comments Depression Screening 1965 Hepatitis C Screening 1965 DTaP/Tdap/Td Vaccine (1 - Tdap) 1975 Hepatitis B Screening 1982 Regular Well Visit/Exam 18-64 1982 Zoster Vaccine (1 of 2) 2014 Breast Cancer Screening-Mammogram 07/17/2023 07/17/2022, 06/24/2021, 08/19/2018, Additional history exists Influenza Vaccine (#1) 2024 Colon Cancer Screening-Colonoscopy 03/18/2025 03/18/2015 Colon Cancer Screening-CT Colonography Discontinued 03/18/2015 Colon Cancer Screening-DNA Stool Discontinued 03/18/2015 Colon Cancer Screening-FIT Discontinued 03/18/2015 Colon Cancer Screening-Sigmoidoscopy Discontinued 03/18/2015 Pneumococcal vaccine <65 Aged Out No longer eligible based on patient's age to complete this topic Procedures Procedure Name Priority Date/Time Associated Diagnosis Comments SCREENING MAMMOGRAM BILATERAL W GALILEO Schedule Routine, Read Routine (OP Routine) 07/17/2022 11:13 AM COMPUTER FORENSICS INVESTIGATOR Screening mammogram, encounter for COLONOSCOPY 03/18/2015 12:00 AM CDT from Last 3 Months or Most Recently Relevant to Health Maintenance Results * Screening Mammogram Bilateral W Galileo (07/17/2022 11:13 AM COMPUTER FORENSICS INVESTIGATOR) Anatomical Region Laterality Modality Breast Bilateral Mammography 07/19/2022 9:00 AM COMPUTER FORENSICS INVESTIGATOR Impressions 07/19/2022 9:00 AM COMPUTER FORENSICS INVESTIGATOR There is no mammographic evidence of malignancy. A 1 year screening mammogram is recommended. BI-RADS: 1 - Negative. The patient has been or will be contacted. The patient will be entered into a reminder system with a target due date of 1 year for her next mammogram. Electronically signed by: Edmond Blanco M.D. Narrative 07/19/2022 9:00 AM COMPUTER FORENSICS INVESTIGATOR EXAMINATION: SCREENING MAMMOGRAM BILATERAL W GALILEO ORDERING [...] CDT PROCEDURE REPORT Patient: NICHOLE VEGA Account: [id number] Room No: : 1965 Patient Type: [facility] Attend.: Earle Siddiqui M.D. Admit Date: 03/18/2015 [...] 03/20/2015 07:46 AM CDT Earle Siddiqui M.D. /tammie TD: 03/19/2015 07:07 CC: Baldomero Serrano M.D. Historical Provider ENDOSCOPY PROCEDURES Marija l Result from Last 3 Months or Most Recently Relevant to Health Maintenance Insurance [employer] [facility] [employer] OPEN ACCESS [facility] [id number] Care Teams Physician Office Secretary Relationship Specialty Start [place] [address] [facility] [address] [place], [place] [id number] PCP - General 08/09/16
== END 2024-07-30 07:56 | disposition home or self-care (01) ==
LOC: CHSIMG 07:57
PROVIDERS: PCP Nurse Practitioner; Visit Provider Nurse Practitioner
DX: Z12.31 Encounter for screening mammogram for malignant neoplasm of breast (principal); Z78.0 Asymptomatic menopausal state
CPT/HCPCS: 77063; 77067; 77080

== ENCOUNTER 2024-09-15 11:49 | Outpatient (CLI) | payer OTHER, SELFPAY ==
--- OUTSIDE RECORDS SUMMARY | 2024-09-15 11:56 | XMS_ITS | Clinical Summary ---
Author Organization [facility] Address [address] [place] [address] Care Team Providers Care Hoop Bending Machine Operator Name Role Phone Baldomero Persaud MD Primary [...] on file Legal Sex Female 11:26 PM LUMBER MATERIAL HANDLER Gender Identity Not on file Sexual Orientation [...] 81.6 kg (180 lb) 06/24/2021 4:37 PM LUMBER MATERIAL HANDLER Height 167.6 cm (5' 6 ) 06/24/2021 4:37 PM LUMBER MATERIAL HANDLER Body Mass Index 29.05 06/24/2021 4:37 PM LUMBER MATERIAL HANDLER Plan of Treatment Health Maintenance Due Date [...] Read Routine (OP Routine) 07/17/2022 11:13 AM LUMBER MATERIAL HANDLER Screening mammogram, encounter for COLONOSCOPY 03/18/2015 12:00 AM CDT from Last 3 Months or Most Recently Relevant to Health Maintenance Results * Screening Mammogram Bilateral W Galileo (07/17/2022 11:13 AM LUMBER MATERIAL HANDLER) Anatomical Region Laterality Modality Breast Bilateral Mammography 07/19/2022 9:00 AM LUMBER MATERIAL HANDLER Impressions 07/19/2022 9:00 AM LUMBER MATERIAL HANDLER There is no mammographic evidence of malignancy. A 1 year screening mammogram is recommended. BI-RADS: 1 - Negative. The patient has been or will be contacted. The patient will be entered into a reminder system with a target due date of 1 year for her next mammogram. Electronically signed by: Edmond Blanco M.D. Narrative 07/19/2022 9:00 AM LUMBER MATERIAL HANDLER EXAMINATION: SCREENING MAMMOGRAM BILATERAL W GALILEO ORDERING [...] CDT PROCEDURE REPORT Patient: NICHOLE VEGA Account: [id number] Room No: : 1965 Patient Type: [facility] Attend.: Earle Siddiqui M.D. Admit Date: 03/18/2015 Dict.: Ealre Siddiqui M.D. Disch. Date: 03/18/2015 NAME OF [...] Most Recently Relevant to Health Maintenance Insurance [employer] [facility] [employer] OPEN ACCESS [facility] [id number] Care Teams Hoop Bending Machine Operator Relationship Specialty [place] [address] [facility] [address] [place], [place] [id number] PCP - General 08/09/16
--- OUTSIDE RECORDS SUMMARY | 2024-09-15 11:56 | XMS_ITS | Referral Summary ---
Author Organization [facility] Address [address] [place] [address] Care Team Providers Care Promotions Representative Name Role Phone Baldomero Persaud MD Primary [...] on file Legal Sex Female 11:26 PM FILTER WORKER Gender Identity Not on file Sexual Orientation Not on file Last Filed Vital Signs Vital Sign Reading Time Taken Comments Blood Pressure 120/82 01/18/2018 3:13 PM CDT Pulse 92 01/18/2018 3:13 PM CDT Temperature - - Respiratory Rate 16 01/18/2018 3:13 PM CDT Oxygen Saturation - - Inhaled Oxygen Concentration - - Weight 81.6 kg (180 lb) 06/24/2021 4:37 PM FILTER WORKER Height 167.6 cm (5' 6 ) 06/24/2021 4:37 PM FILTER WORKER Body Mass Index 29.05 06/24/2021 4:37 PM FILTER WORKER Plan of Treatment Not on file Procedures Procedure Name Priority Date/Time Associated Diagnosis Comments SCREENING MAMMOGRAM BILATERAL W GALILEO Schedule Routine, Read Routine (OP Routine) 07/17/2022 11:13 AM FILTER WORKER Screening mammogram, encounter for COLONOSCOPY 03/18/2015 12:00 AM CDT from Last 3 Months or Most Recently Relevant to Health Maintenance Results * Screening Mammogram Bilateral W Galileo (07/17/2022 11:13 AM FILTER WORKER) Anatomical Region Laterality Modality Breast Bilateral Mammography 07/19/2022 9:00 AM FILTER WORKER Impressions 07/19/2022 9:00 AM FILTER WORKER There is no mammographic evidence of malignancy. A 1 year screening mammogram is recommended. BI-RADS: 1 - Negative. The patient has been or will be contacted. The patient will be entered into a reminder system with a target due date of 1 year for her next mammogram. Electronically signed by: Edmond Blanco M.D. Narrative 07/19/2022 9:00 AM FILTER WORKER EXAMINATION: SCREENING MAMMOGRAM BILATERAL W GALILEO ORDERING [...] CDT PROCEDURE REPORT Patient: NICHOLE VEGA Account: [id number] Room No: : 1965 Patient Type: SDS [...] Most Recently Relevant to Health Maintenance Insurance [facility] [employer] OPEN ACCESS [facility] [id number] Care Teams Promotions Representative Relationship Specialty [place] [id number] [facility] [address] [place] [address] PCP - General 08/09/16
--- OUTSIDE RECORDS SUMMARY | 2024-09-15 11:56 | XMS_ITS ---
Author Organization Unknown Address [address] [place] [phone] Phone Care Team Providers Care System Validation Engineer Name Role Phone PREET GASTON Attending Unavailable HANNY Oliveros Primary Unavailable Results DIG 3D YOUSIF SCREENING BILATER AL - Completed: 07/28/2023 15:37 LOINC: See Scanned Image Attachment for Report Dictated By: Trans Initials: BG Trans Date: 08/24/23 13:01 <<REPDIST>> Social History Type Status Start Date End Date Code Code Syst em Smoking History Never smoker (Never Smoked) 053222298 SNOMED CT Sex Female Hospital Discharge Instructions Should you have any questions prior to discharge, please contact a member of your healthcare team. If you have left the hospital and have any questions, please contact your primary care physician. Reason For Referral No Data Found Plan of Treatment No Data Found Encounters Encounter Diagnosis Start Date Code Code Sys tem Screening mammography 07/28/2023 [id number] SNOMED -CT Personal Care Team Section Performer Name Performer Role Active Date Inactive JENY Leung PCP - Primary care physician Imaging Narrative Notes [facility] 08/24/2023 13:[address] [address] RADIOLOGY REPORT Patient Number: [id number] Patient Name: GARY Hall Type: O/P MR Number: [id number] : 1965 Age: 58 Sex: F Room #: Admit Date: 07/28/23 Discharge Date 07/28/23 Ordering Physician: PREET GASTON Family Physician: HANNY JEFF Second Physician: X-Ray Number : [id number] DIG 3D YOUSIF SCREENING BILATERA [id number] COMPLETE:07/28/23 15:37 [id number] (REASONS-DIG 3D YOUSIF SCREENING BILATERAL: SCREENING MAMMOGRAM See Scanned Image Attachment for Report Dictated By: Yessica Initials: Trans Date: 08/24/23 13:01 <<REPDIST>>
[2024-09-15 12:06] LABS: Basophils Absolute Auto 0.06 K/mm3 (0.00-0.10); Eosinophils Absolute Auto 0.11 K/mm3 (0.02-0.50); Eosinophils Percent Auto 1.9 % (1.0-6.0); Hematocrit 36.6 % (35.0-49.0); Hemoglobin 11.4 g/dL (12.0-15.0); Immature Granulocyte Absolute 0.01 K/mm3 (0.00-0.00); Immature Granulocyte Percent A 0.2 % (0.0-0.0); Lymphocytes Percent Auto 34.8 % (18.0-42.0); Mean Corpuscular HGB Conc 31.1 g/dL (32-36); Mean Corpuscular Hemoglobin 26.6 pg (27.0-31.0); Mean Corpuscular Volume 85.3 fL (78.0-102.0); Mean Platelet Volume 11.3 fl (9.2-11.8); Monocytes Absolute Auto 0.41 K/mm3 (0.10-0.90); Monocytes Percent Auto 7.1 % (2.0-11.0); Neutrophils Absolute Auto 3.15 K/mm3 (1.70-7.20); Platelet Count Result 221 K/mm3 (150-420); Red Blood Count 4.29 M/mm3 (4.20-5.40); Red Cell Distribution Width 13.7 % (11.6-14.4); White Blood Count 5.7 K/mm3 (4.8-10.8)
[2024-09-15 12:15] LABS: Hemoglobin A1C 5.5 % (<5.7)
[2024-09-15 12:32] LABS: Alanine Aminotransferase 22 U/L (14-59); Albumin Level 3.9 g/dL (3.4-5.0); Alkaline Phosphatase 69 U/L (46-116); Anion Gap 8 mmol/L (4-12); Aspartate Amino Transferase 14 U/L (15-37); Bilirubin,Total 0.8 mg/dL (0.00-1.00); Blood Urea Nitrogen 14 mg/dL (7-18); Calcium 9.2 mg/dL (8.5-10.1); Carbon Dioxide 29 mmol/L (21-32); Chloride 101 mmol/L (98-108); Cholesterol 166 mg/dL (0-200); Estimated Glomerular Filt Rate > 60; Glucose 85 mg/dL (70-99); HDL Direct 47 mg/dL (40-60); LDL Cholesterol Calculated 93 mg/dL (<130); Osmolality Calculated 285 mOsm/kg (285-295); Potassium 4.2 mmol/L (3.5-5.1); Sodium 138 mmol/L (136-145); Total Protein 7.9 g/dL (6.4-8.2); Triglycerides 132 mg/dL (0-150)
== END 2024-09-15 11:50 | disposition home or self-care (01) ==
PROVIDERS: PCP Nurse Practitioner; Visit Provider Family Medicine
DX: E78.1 Pure hyperglyceridemia (principal); R73.01 Impaired fasting glucose
CPT/HCPCS: 36415; 80053; 80061; 83036; 85025

== ENCOUNTER 2025-01-16 07:28 | Outpatient (CLI) | payer OTHER, SELFPAY ==
--- OUTSIDE RECORDS SUMMARY | 2025-01-16 07:35 | XMS_ITS | Referral Summary ---
Author Organization [facility] Address [address] [place] [address] Care Team Providers Care Client Support Coordinator Name Role Phone Baldomreo Persaud MD Primary Care Provider + Allergies [...] on file Legal Sex Female 11:26 PM MECHANICAL ADJUSTER Gender Identity Not on file Sexual Orientation Not on file Last Filed Vital Signs Vital Sign Reading Time Taken Comments Blood Pressure 120/82 01/18/2018 3:13 PM CDT Pulse 92 01/18/2018 3:13 PM CDT Temperature - - Respiratory Rate 16 01/18/2018 3:13 PM CDT Oxygen Saturation - - Inhaled Oxygen Concentration - - Weight 81.6 kg (180 lb) 06/24/2021 4:37 PM MECHANICAL ADJUSTER Height 167.6 cm (5' 6) 06/24/2021 4:37 PM MECHANICAL ADJUSTER Body Mass Index 29.05 06/24/2021 4:37 PM MECHANICAL ADJUSTER Plan of Treatment Not on file Procedures Procedure Name Priority Date/Time Associated Diagnosis Comments SCREENING MAMMOGRAM BILATERAL W GALILEO Schedule Routine, Read Routine (OP Routine) 07/17/2022 11:13 AM MECHANICAL ADJUSTER Screening mammogram, encounter for COLONOSCOPY 03/18/2015 12:00 AM CDT from Last 3 Months or Most Recently Relevant to Health Maintenance Results * Screening Mammogram Bilateral W Galileo (07/17/2022 11:13 AM MECHANICAL ADJUSTER) Anatomical Region Laterality Modality Breast Bilateral Mammography 07/19/2022 9:00 AM MECHANICAL ADJUSTER Impressions 07/19/2022 9:00 AM MECHANICAL ADJUSTER There is no mammographic evidence of malignancy. A 1 year screening mammogram is recommended. BI-RADS: 1 - Negative. The patient has been or will be contacted. The patient will be entered into a reminder system with a target due date of 1 year for her next mammogram. Electronically signed by: Edmond Blanco M.D. Narrative 07/19/2022 9:00 AM MECHANICAL ADJUSTER EXAMINATION: SCREENING MAMMOGRAM BILATERAL W GALILEO ORDERING [...] CDT PROCEDURE REPORT Patient: NICHOLE VEGA Account: [id number] Room No: : 1965 Patient Type: SDS [...] Most Recently Relevant to Health Maintenance Insurance [facility] [employer] OPEN ACCESS [facility] [id number] Care Teams Client Support Coordinator Relationship Specialty [place] [id number] [facility] [address] [place] [address] PCP - General 08/09/16
--- OUTSIDE RECORDS SUMMARY | 2025-01-16 07:35 | XMS_ITS | Clinical Summary ---
Author Organization [facility] Address [address] [place] [address] Care Team Providers Care Product Marketing Programs Manager Name Role Phone Baldomero Persaud MD Primary [...] History Medical History Date Comments Cerebral palsy Family History Medical History Relation Name Comments [...] on file Legal Sex Female 11:26 PM PARK AIDE Gender Identity Not on file Sexual Orientation [...] 81.6 kg (180 lb) 06/24/2021 4:37 PM PARK AIDE Height 167.6 cm (5' 6) 06/24/2021 4:37 PM PARK AIDE Body Mass Index 29.05 06/24/2021 4:37 PM PARK AIDE Plan of Treatment Health Maintenance Due Date Last Done Comments Depression Screening 1965 Hepatitis C Screening 1965 DTaP/Tdap/Td Vaccine (1 - Tdap) 1975 Hepatitis B Screening 1982 Regular Well Visit/Exam 18-64 1982 Zoster Vaccine (1 of 2) 2014 Breast Cancer Screening-Mammogram 07/17/2023 07/17/2022, 06/24/2021, 08/19/2018, Additional history exists Influenza Vaccine (#1) 2025 Colon Cancer Screening-Colonoscopy 03/18/2025 03/18/2015 Colon Cancer [...] Read Routine (OP Routine) 07/17/2022 11:13 AM PARK AIDE Screening mammogram, encounter for COLONOSCOPY 03/18/2015 12:00 AM CDT from Last 3 Months or Most Recently Relevant to Health Maintenance Results * Screening Mammogram Bilateral W Galileo (07/17/2022 11:13 AM PARK AIDE) Anatomical Region Laterality Modality Breast Bilateral Mammography 07/19/2022 9:00 AM PARK AIDE Impressions 07/19/2022 9:00 AM PARK AIDE There is no mammographic evidence of malignancy. A 1 year screening mammogram is recommended. BI-RADS: 1 - Negative. The patient has been or will be contacted. The patient will be entered into a reminder system with a target due date of 1 year for her next mammogram. Electronically signed by: Edmond Blanco M.D. Narrative 07/19/2022 9:00 AM PARK AIDE EXAMINATION: SCREENING MAMMOGRAM BILATERAL W GALILEO ORDERING [...] CDT PROCEDURE REPORT Patient: NICHOLE VEGA Account: [id number] Room No: : 1965 Patient Type: CONFLUENCE [...] 07:07 CC: Baldomero Serrano M.D. Historical Provider MD ENDOSCOPY PROCEDURES Marija l Result from Last 3 Months or Most Recently Relevant to Health Maintenance Insurance [employer] [facility] [employer] OPEN ACCESS [facility] [id number] Care Teams Product Marketing Programs Manager Relationship Specialty [place] [id number] [address] [facility] [address] [place] [address] PCP - General 08/09/16
[2025-01-16 07:53] LABS: Add Urine Microscopic? NO; Appearance Urine Clear (Clear); Glucose Urine UA Negative (Negative); Hematocrit 37.4 % (35.0-49.0); Hemoglobin 12.1 g/dL (12.0-15.0); Immature Granulocyte Percent A 0.3 % (0.0-0.0); Leukocyte Esterase Ur Negative (Negative); Lymphocytes Absolute Auto 2.01 K/mm3 (1.10-4.50); Mean Corpuscular HGB Conc 32.4 g/dL (32-36); Mean Corpuscular Hemoglobin 28.6 pg (27.0-31.0); Mean Corpuscular Volume 88.4 fL (78.0-102.0); Nitrate Urine Negative (Negative); Nucleated Red Blood Cells Absolute Auto 0.00 K/mm3 (0.00-0.00); Nucleated Red Blood Cells Perc 0.0 % (0-0.0); Platelet Count Result 242 K/mm3 (150-420); Red Blood Count 4.23 M/mm3 (4.20-5.40); Specific Grav Ur <= 1.005 (1.010-1.020); White Blood Count 6.0 K/mm3 (4.8-10.8)
[2025-01-16 08:05] LABS: Hemoglobin A1C 5.3 % (<5.7)
[2025-01-16 08:26] LABS: Alanine Aminotransferase 17 U/L (6-35); Albumin Level 4.6 g/dL (3.5-5.1); Alkaline Phosphatase 59 U/L (38-126); Anion Gap 8 mmol/L (4-12); Aspartate Amino Transferase 27 U/L (14-36); Bilirubin,Total 1.1 mg/dL (0.2-1.3); Blood Urea Nitrogen 13 mg/dL (7-17); Calcium 10.0 mg/dL (8.4-10.2); Carbon Dioxide 28 mmol/L (22-30); Chloride 104 mmol/L (98-107); Cholesterol 148 mg/dL (0-200); Estimated Glomerular Filt Rate > 60; Glucose 97 mg/dL (65-110); HDL Direct 45 mg/dL; Osmolality Calculated 290 mOsm/kg (285-295); Potassium 4.3 mmol/L (3.4-5.0); Sodium 140 mmol/L (137-145); Total Protein 7.5 g/dL (6.3-8.2); Triglycerides 147 mg/dL (<150)
[2025-01-16 08:57] LABS: Thyroid Stimulating Hormone 1.730 uIU/mL (0.465-4.680)
== END 2025-01-16 07:29 | disposition home or self-care (01) ==
LOC: CHSLAB 07:33
PROVIDERS: PCP Internal Medicine Geriatric Medicine; Visit Provider Nurse Practitioner
DX: Z00.00 Encounter for general adult medical examination without abnormal findings (principal); E78.5 Hyperlipidemia, unspecified; E55.9 Vitamin D deficiency, unspecified; R73.09 Other abnormal glucose
CPT/HCPCS: 36415; 80053; 80061; 81003; 82306; 83036; 84443; 85025